=== PATIENT | male | born 1985 | race African-American/Black ===

== ENCOUNTER 2022-12-09 19:50 | Emergency (ER) | payer MEDICAID ==
[~2022-12-09] VITALS: Ht 193 cm; Wt 105.0 kg
[2022-12-09 21:12] LABS: BASOPHILS % 0.1 % (0.0-2.0); EOSINOPHILS % 0.5 % (0.0-5.0); HEMATOCRIT. 43.7 % (42.0-52.0); HEMOGLOBIN. 14.5 g/dL (14.0-18.0); LYMPHOCYTES % 18.3 % (20.0-50.0); MEAN CORPUSCULAR HEMOGLOBIN 27.3 pg (28.0-32.0); MEAN CORPUSCULAR VOLUME 82.2 fL (80.0-94.0); MEAN PLATELET VOLUME 7.5 fl (7.4-10.4); MONOCYTES % 10.3 % (2.0-8.0); NEUTROPHILS % 70.8 % (40.0-76.0); PLATELET 206 x1000/uL (130-400); RED BLOOD CELL COUNT 5.32 mill/uL (4.7-6.1); RED CELL DISTRIBUTION WIDTH 14.4 % (11.6-14.6)
[2022-12-09 21:21] LABS: CHLORIDE 108 mEq/L (98-107)
[2022-12-10 01:20] VITALS: BP 124/89
== END 2022-12-10 01:22 | disposition home or self-care (01) ==
LOC: ER 19:50
DX: R00.2 Palpitations (principal); F17.200 Nicotine dependence, unspecified, uncomplicated
CPT/HCPCS: 36415; 71045; 80053; 84484; 85025; 85379; 99284; Z7610